=== PATIENT | female | born 1950 | race Caucasian/White ===

== ENCOUNTER 2021-07-10 10:57 | Inpatient (IN) ==
[2021-07-10] MEDS ORDERED: diphenhydrAMINE CAP 50 MG CAPSULE PO ONE (11:00)
[2021-07-10] MEDS ORDERED: DIAZEPAM 5 MG TABLET PO ONE (11:00)
[2021-07-10 11:23] VITALS: BP 117/61
[2021-07-10] MEDS ORDERED: DIAZEPAM 5 MG TABLET ONE (11:42)
[2021-07-10] MEDS ORDERED: diphenhydrAMINE CAP 50 MG CAPSULE ONE (11:42)
[2021-07-10] MEDS: SODIUM CHLORIDE 0.9% 1,000 ML IV SCH ×2 (11:43→19:45)
[2021-07-10] MEDS ORDERED: NITROGLYCERIN DRIP 50 MG/250 ML BOTTLE IV ONE (12:53)
[2021-07-10] MEDS ORDERED: LIDOCAINE 1% 20 ML VIAL ONE (12:53)
[2021-07-10] MEDS ORDERED: VERAPAMIL 5 MG/2 ML VIAL ONE (12:53)
[2021-07-10] MEDS ORDERED: MIDAZOLAM 2 MG/2 ML VIAL ONE ×3 (12:58→14:13)
[2021-07-10] MEDS ORDERED: fentaNYL 100 MCG/2 ML VIAL ONE ×2 (13:12→14:31)
[2021-07-10] MEDS ORDERED: HEPARIN 5,000 UNIT/1 ML VIAL ONE (13:13)
[2021-07-10] MEDS ORDERED: HEPARIN/NACL 0.9% 2 UNITS/ML 3,000 UNIT/1,500 ML BAG IV ONE (13:42)
[2021-07-10] MEDS ORDERED: HEPARIN/NACL 0.9% 2 UNITS/ML 1,000 UNIT/500 ML BAG IV ONE ×2 (14:18→14:41)
[2021-07-10] MEDS ORDERED: ATROPINE 1 MG/10 ML SYRINGE ONE (14:28)
[2021-07-10] MEDS ORDERED: DOPamine 800 MG/250 ML PREMIX IV ONE (14:29)
[2021-07-10] MEDS ORDERED: hydrALAZINE 20 MG/1 ML VIAL ONE (15:06)
[2021-07-10] MEDS ORDERED: CLOPIDOGREL 300 MG TABLET ONE (15:26)
[2021-07-10] MEDS ORDERED: ZALEPLON 5 MG CAPSULE PO PRN (15:29)
[2021-07-10] MEDS ORDERED: ONDANSETRON 4 MG/2 ML VIAL IV PRN (15:29)
[2021-07-10] MEDS ORDERED: MORPHINE 2 MG/1 ML SYRINGE IV PRN (15:29)
[2021-07-10] MEDS ORDERED: ACETAMINOPHEN 325 MG TABLET PO PRN (15:29)
[2021-07-10] MEDS ORDERED: FAMOTIDINE 20 MG/2 ML VIAL IV ONE (15:59)
[2021-07-10] MEDS: GABAPENTIN 100 MG CAPSULE PO SCH (21:20)
[2021-07-10] MEDS: PANTOPRAZOLE 40 MG TABLET PO SCH (21:20)
[2021-07-10] MEDS: OMEGA 3 ACID ETHYL ESTERS 1 GM CAPSULE PO SCH (21:20)
[2021-07-10] MEDS: POTASSIUM CHLORIDE 20 MEQ TABLET PO SCH (21:20)
[2021-07-10] MEDS: SIMVASTATIN 40 MG TABLET PO SCH (21:21)
[2021-07-11] MEDS ORDERED: ALPRAZolam 0.25 MG TABLET PO ONE (00:58)
[2021-07-11] MEDS: SODIUM CHLORIDE 0.9% 1,000 ML IV SCH (03:29)
[2021-07-11 06:06] LABS: Basophils % 0.1 % (0.0-0.8); Hematocrit 35.4 VOL% (35.7-47.0); Hemoglobin 11.2 GM/DL (12.0-16.0); Immature Granulocytes % 0.4 %; Immature Granulocytes Absolute 0.03 #; Lymphocytes # 0.8 10*3/uL (1.4-4.0); Lymphocytes % 10.9 % (21.3-54.2); Mean Corpuscular HGB Conc 31.6 GM/DL (32-36); Mean Corpuscular Volume 86.1 FL (87-102); Mean Platelet Volume 8.8 FL (9.6-12.0); Monocytes % 4.8 % (1.7-12.7); Neutrophils % 83.8 % (38.7-73.9); Platelet Count 148 T/CUMM (130-400); Red Blood Count 4.11 MC/CUMM (3.8-5.5); Red Cell Distribution Width 13.7 % (9.3-17.3); White Blood Count 7.5 T/CUMM (4-12)
[2021-07-11 06:25] LABS: Calcium 8.7 MG/DL (8.5-10.1); Osmolality,Calculated 282.3 MOS/KG (273-304); Potassium 3.7 MMOL/L (3.5-5.1); Risk Ratio 2.63; VLDL Cholesterol 25.4 MG/DL
[2021-07-11] MEDS: LEVOTHYROXINE 88 MCG TABLET PO SCH (06:38)
[2021-07-11] MEDS ORDERED: diphenhydrAMINE 50 MG/1 ML VIAL IV ONE (06:50)
[2021-07-11] MEDS ORDERED: diphenhydrAMINE 50 MG/1 ML VIAL ONE (07:02)
[2021-07-11] MEDS: CLOPIDOGREL 75 MG TABLET PO SCH (08:11)
[2021-07-11] MEDS: POTASSIUM CHLORIDE 20 MEQ TABLET PO SCH ×2 (08:11→21:26)
[2021-07-11] MEDS: PANTOPRAZOLE 40 MG TABLET PO SCH ×2 (08:11→21:26)
[2021-07-11] MEDS: ASPIRIN EC 81 MG TABLET PO SCH (08:11)
[2021-07-11] MEDS: OMEGA 3 ACID ETHYL ESTERS 1 GM CAPSULE PO SCH ×2 (08:11→21:25)
[2021-07-11] MEDS: EZETIMIBE 10 MG TABLET PO SCH (08:11)
[2021-07-11] MEDS: CHOLECALCIFEROL 1,000 UNIT TABLET PO SCH (08:11)
[2021-07-11] MEDS: VITAMIN E 1000 UNIT CAPSULE PO SCH (11:22)
[2021-07-11] MEDS ORDERED: diphenhydrAMINE CAP 50 MG CAPSULE PO PRN (16:07)
[2021-07-11] MEDS: SIMVASTATIN 40 MG TABLET PO SCH (21:26)
[2021-07-11] MEDS: GABAPENTIN 100 MG CAPSULE PO SCH (21:26)
[2021-07-12] MEDS: LEVOTHYROXINE 88 MCG TABLET PO SCH (05:57)
[2021-07-12 07:45] LABS: Basophils % 0.4 % (0.0-0.8); Eosinophils # 0.2 10*3/uL (0.0-0.87); Eosinophils % 3.7 % (0.00-10.9); Hematocrit 34.4 VOL% (35.7-47.0); Hemoglobin 10.9 GM/DL (12.0-16.0); Immature Granulocytes % 0.4 %; Immature Granulocytes Absolute 0.02 #; Lymphocytes # 1.2 10*3/uL (1.4-4.0); Lymphocytes % 25.8 % (21.3-54.2); Mean Corpuscular HGB Conc 31.7 GM/DL (32-36); Mean Corpuscular Volume 86.9 FL (87-102); Mean Platelet Volume 9.8 FL (9.6-12.0); Monocytes % 8.8 % (1.7-12.7); Neutrophils % 60.9 % (38.7-73.9); Platelet Count 122 T/CUMM (130-400); Red Blood Count 3.96 MC/CUMM (3.8-5.5); White Blood Count 4.7 T/CUMM (4-12)
[2021-07-12 08:06] LABS: Calcium 8.7 MG/DL (8.5-10.1); Osmolality,Calculated 271.8 MOS/KG (273-304)
[2021-07-12] MEDS: POTASSIUM CHLORIDE 20 MEQ TABLET PO SCH (08:22)
[2021-07-12] MEDS: PANTOPRAZOLE 40 MG TABLET PO SCH (09:50)
[2021-07-12] MEDS: EZETIMIBE 10 MG TABLET PO SCH (09:50)
[2021-07-12] MEDS: ASPIRIN EC 81 MG TABLET PO SCH (09:50)
[2021-07-12] MEDS: VITAMIN E 1000 UNIT CAPSULE PO SCH (09:50)
[2021-07-12] MEDS: CHOLECALCIFEROL 1,000 UNIT TABLET PO SCH (09:50)
[2021-07-12] MEDS: OMEGA 3 ACID ETHYL ESTERS 1 GM CAPSULE PO SCH (09:50)
[2021-07-12] MEDS: CLOPIDOGREL 75 MG TABLET PO SCH (09:50)
== END 2021-07-12 11:10 | disposition home or self-care (01) | DRG 246 ==
LOC: N.CL 10:57 → N.ICU 15:59
PROVIDERS: ADMIT Internal Medicine Cardiovascular Disease; ATTEND Internal Medicine Cardiovascular Disease
PROC: CLCCHCL (ICD-10-PCS; 2021-07-10 14:15)